=== PATIENT | male | born 1960 | race Caucasian/White ===

== ENCOUNTER → 2016-10-08 | Day surgery (SDC) | payer BC ==
[~2016-10-08] MED LIST: BUPIVACAINE/EPINEPHRINE 0.25% 50 ML VIAL ONE; KETOROLAC TROMETHAMINE 30 MG/ML (IVP) VIAL IV PUSH ONE; LACTATED RINGER'S 1000 ML INJ 1,000 ML ONE; MIDAZOLAM HCL 2 MG/2 ML VIAL ONE; PROPOFOL 500 MG/50 ML BTL IV ONE; ceFAZolin 2 GM PREMIX 50 ML ONE
--- NOTE | 2016-10-08 09:52 | TN ---
cc: SANDEEP STAFFORD M.D. DATE OF SURGERY: October 08, 2016 PREOPERATIVE DIAGNOSIS A 5 cm mass right shoulder, probable lipoma. POSTOPERATIVE DIAGNOSIS A 5 cm mass right shoulder, probable lipoma. PROCEDURE PERFORMED Excision 5 cm mass, right shoulder. SURGEON Sandeep Stafford MD ANESTHESIA TIVA with local. COMPLICATIONS None. INDICATION FOR PROCEDURE Mr. Fuller is a very pleasant 55-year-old gentleman who noted enlarging mass on his right shoulder. It had been there for several years but had gotten larger and was starting to cause him some discomfort. When he laid on his back the mass caused pressure and pain. He was seen and evaluated in the office. By physical exam this appeared to be a large lipoma on the right shoulder. He was offered excision of the mass. Risks and benefits of excision was discussed with him and he was agreeable. DETAILS OF PROCEDURE The patient was identified, brought to the operating room and placed supine on the operating table. He was then turned up into the left lateral decubitus position with appropriate padding for hips, knees, shoulders and ankles. The patient was then lightly sedated. The right shoulder was then prepped and draped in standard surgical fashion. 0.25% Marcaine was injected around the mass. A longitudinal incision was then made directly overlying the mass. Subcutaneous tissue was dissected with electrocautery Bovie. Deep in the subcutaneous fat we encountered an encapsulated fatty mass. Using blunt and electrocautery dissection the mass was excised in toto without violating its capsule. The mass was removed and sent to pathology for analysis. Bleeding points were controlled with electrocautery Bovie. The wound was then irrigated with normal saline solution. The wound was then closed in two layers using 3-0 Vicryl for the deep tissue and 4-0 Vicryl for the skin. Sterile dressings were applied and the patient was awakened, returned to the supine position and brought to the recovery room in stable condition. MD SCOOBY John/GIUSEPPE /9:37 AM /9:44 AM
== END | disposition home or self-care (01) ==
LOC: ESDC 07:38
PROVIDERS: ATTEND Surgery Trauma Surgery
DX: D17.21 Benign lipomatous neoplasm of skin and subcutaneous tissue of right arm (principal)
CPT/HCPCS: 00400; 23071; 88305; J0690; J1885; J2250; J3010; J7120; 88304